=== PATIENT | female | born 1965 | race Caucasian/White ===

== ENCOUNTER 2019-01-22 09:15 | Emergency (ER) | payer BC ==
[2019-01-22 09:29] VITALS: BP 131/87
--- NOTE | 2019-01-22 09:41 | UC ---
Lower Extremity/Ankle HPI - HPI Summary HPI Summary: 53 yo female inverted left ankle whild wearing high heals pain with wt bearing to ibuprofen this am - History of Current Complaint Chief Complaint: UCLowerExtremity Stated Complaint: FOOT INJURY Time Seen by Provider: 01/22/19 09:22 Hx Obtained From: Patient Hx Last Menstrual Period: 3 weeks ago Onset/Duration: Sudden Onset Severity Initially: Severe Severity Currently: Moderate Pain Intensity: 5 Pain Scale Used: 0-10 Numeric Aggravating Factor(s): Standing, Ambulation Alleviating Factor(s): Rest, Elevation Able to Bear Weight: Yes Feet (Multiple View): 1 - pain and swelling here - Allergies/Home Medications Allergies/Adverse Reactions: Allergies Allergy/AdvReac Type Severity Reaction Status Date / Time No Known Allergies Allergy Verified 08/21/14 07:18 Home Medications: Home Medications Ibuprofen TAB* [Advil TAB*] 600 mg PO Q6H PRN 01/22/19 [History Confirmed ] PMH/Surg Hx/FS Hx/Imm Hx Previously Healthy: Yes Cardiovascular History: Hypertension - Surgical History Surgical History: None - Family History Known Family History: Positive: Cardiac Disease, Hypertension, Diabetes - Social History Alcohol Use: Daily Alcohol Amount: 2 glasses of wine/ day Substance Use Type: None Smoking Status (MU): Never Smoked Tobacco Have You Smoked in the Last Year: No Review of Systems All Other Systems Reviewed And Are Negative: Yes Constitutional: Positive: Negative Skin: Positive: Negative Eyes: Positive: Negative ENT: Positive: Negative Respiratory: Positive: Negative Cardiovascular: Positive: Negative Gastrointestinal: Positive: Negative Genitourinary: Positive: Negative Motor: Positive: Negative Neurovascular: Positive: Negative Musculoskeletal: Positive: Arthralgia - L ankle Neurological: Positive: Negative Psychological: Positive: Negative Physical Exam Triage Information Reviewed: Yes Appearance: Well-Appearing, No Pain Distress, Well-Nourished Vital Signs: Initial Vital Signs Temp 98.7 F 01/22/19 09:22 Pulse 85 01/22/19 09:22 Resp 18 01/22/19 09:22 BP 131/87 01/22/19 09:22 Pulse Ox 96 05/19/19 09:22 Vital Signs Reviewed: Yes Eyes: Positive: Conjunctiva Clear ENT: Positive: Hearing grossly normal. Negative: Nasal congestion, Nasal drainage, Trismus, Muffled voice, Hoarse voice Neck: Positive: Supple, Nontender, No Lymphadenopathy Respiratory: Positive: Lungs clear, Normal breath sounds, No respiratory distress Cardiovascular: Positive: RRR, No Murmur Musculoskeletal: Positive: Edema @ - see image, Other: - see image/non tender over lat mall and base of 5th MT, antalgic gait Neurological: Positive: Alert Psychological Exam: Normal Skin Exam: Normal Diagnostics - Radiology No standard instances Radiology Interpretation Completed By: Radiologist Summary of Radiographic Findings: no fx Lower Extremity Course/Dx - Differential Dx/Diagnosis Provider Diagnosis: Right ankle sprain Discharge - Sign-Out/Discharge Documenting (check all that apply): Patient Departure All imaging exams completed and their final reports reviewed: Yes - Discharge Plan Condition: Stable Disposition: HOME Patient Education Materials: Ankle Sprain (ED), R.I.C.E. Treatment (ED) Referrals: Shoshana Small NP [Primary Care Provider] - 2 Weeks (recheck in 10-14 days if unable to bear wt pain free) Additional Instructions: advil or aleve rest elevate ice don't be surprised if you develop bruising - Billing Disposition and Condition Condition: STABLE Disposition: Home
== END 2019-01-22 10:30 | disposition home or self-care (01) ==
LOC: UCEAST 09:15
DX: S93.402A Sprain of unspecified ligament of left ankle, initial encounter (principal); X50.1XXA Overexertion from prolonged static or awkward postures, initial encounter; Y92.9 Unspecified place or not applicable
CPT/HCPCS: 99203; G0463

== ENCOUNTER 2019-07-08 16:39 | Emergency (ER) | payer BC ==
[2019-07-08 17:21] VITALS: BP 139/98
[2019-07-08] MEDS ORDERED: Albuterol/Ipratropium NEB.SOL* Albuterol 2.5 MG/Ipratropium 0.5 MG 3 ML INH ONE (18:10)
--- NOTE | 2019-07-08 18:12 | UC ---
Respiratory Complaint HPI - HPI Summary HPI Summary: today patient notice that she had began wheezing--seems to have the cough/cold/ viral symptoms that is going around. - History of Current Complaint Chief Complaint: UCRespiratory Stated Complaint: CONGESTED Time Seen by Provider: 07/08/19 18:04 Hx Obtained From: Patient Hx Last Menstrual Period: 05/21/19 ?: No Onset/Duration: Sudden Onset, Lasting Days, Still Present Timing: Constant Pain Intensity: 0 Pain Scale Used: 0-10 Numeric Character: Cough: Nonproductive Aggravating Factors: Exertion, Deep Breaths Alleviating Factors: Nothing Associated Signs And Symptoms: Positive: URI - Allergies/Home Medications Allergies/Adverse Reactions: Allergies Allergy/AdvReac Type Severity Reaction Status Date / Time No Known Allergies Allergy Verified 07/08/19 17:22 PMH/Surg Hx/FS Hx/Imm Hx Cardiovascular History: Hypertension - Surgical History Surgical History: None - Family History Known Family History: Positive: Cardiac Disease, Hypertension, Diabetes - Social History Occupation: Employed Full-time Lives: With Family Alcohol Use: Daily Alcohol Amount: 2 glasses of wine/ day Substance Use Type: None Smoking Status (MU): Never Smoked Tobacco Have You Smoked in the Last Year: No Review of Systems All Other Systems Reviewed And Are Negative: Yes Constitutional: Positive: Negative Skin: Positive: Negative Eyes: Positive: Negative ENT: Positive: Negative Respiratory: Positive: Cough - wheeze Cardiovascular: Positive: Negative Gastrointestinal: Positive: Negative Genitourinary: Positive: Negative Motor: Positive: Negative Neurovascular: Positive: Negative Musculoskeletal: Positive: Negative Neurological: Positive: Negative Psychological: Positive: Negative Is Patient Immunocompromised?: No Physical Exam Triage Information Reviewed: Yes Appearance: Well-Appearing, No Pain Distress, Well-Nourished Vital Signs: Initial Vital Signs Temp 98.4 F 07/08/19 17:17 Pulse 60 07/08/19 17:17 Resp 16 07/08/19 17:17 BP 139/98 07/08/19 17:17 Pulse Ox 99 07/08/19 17:17 Vital Signs Reviewed: Yes Eye Exam: Normal Eyes: Positive: Conjunctiva Clear ENT Exam: Normal ENT: Positive: Normal ENT inspection, Hearing grossly normal, Pharynx normal, TMs normal, Uvula midline. Negative: Nasal congestion, Tonsillar swelling, Trismus, Muffled voice, Hoarse voice, Dental tenderness, Sinus tenderness Dental Exam: Normal Neck exam: Normal Neck: Positive: Supple, Nontender, No Lymphadenopathy Respiratory Exam: Other Respiratory: Positive: Chest non-tender, No respiratory distress, No accessory muscle use, Wheezing - expiration l>r lower lobes Cardiovascular Exam: Normal Cardiovascular: Positive: RRR, No Murmur, Pulses Normal, Brisk Capillary Refill Musculoskeletal Exam: Normal Musculoskeletal: Positive: Strength Intact, ROM Intact, No Edema Neurological Exam: Normal Neurological: Positive: Alert, Muscle Tone Normal Psychological Exam: Normal Skin Exam: Normal Respiratory Course/Dx - Course Course Of Treatment: increase airmovement and decreased wheeze after neb---will treat with Zithromax and albuterol MDI to follow with Janelle Odonnell this week as needed - Differential Dx/Diagnosis Provider Diagnosis: Bronchitis, acute, with bronchospasm Discharge ED - Sign-Out/Discharge Documenting (check all that apply): Patient Departure All imaging exams completed and their final reports reviewed: No Studies - Discharge Plan Condition: Stable Disposition: HOME Prescriptions: Albuterol HFA INHALER* [Ventolin HFA Inhaler*] 2 puff INH Q4H PRN #1 mdi PRN Reason: cough/wheeze Azithromycin TAB* [Zithromax TAB (Z-HAILE) 250 mg #6 tabs] 250 mg PO DAILY #4 tab Patient Education Materials: Acute Bronchitis (ED), Bronchospasm (ED), How to Use a Metered-Dose Inhaler and a Spacer (ED) Referrals: Girish Odnonell, [employer] [Primary Care Provider] - If Needed - Billing Disposition and Condition Condition: STABLE Disposition: Home - Attestation Statements Provider Attestation: Per institutional requirements, I have reviewed the chart, however, I was not consulted specifically or made aware of this patient by the midlevel provider. I did not personally evaluate, interact with , or disposition this patient.
[2019-07-08] MEDS ORDERED: Albuterol HFA INHALER* 8 gm MDI INH ONE (18:30)
[2019-07-08] MEDS ORDERED: Azithromycin TAB* 250 MG PO ONE (18:31)
== END 2019-07-08 18:48 | disposition home or self-care (01) ==
LOC: UCEAST 16:39
DX: J20.9 Acute bronchitis, unspecified (principal); I10 Essential (primary) hypertension
CPT/HCPCS: 99212; A9270-GY; G0463